=== PATIENT | male | born 1965 ===

== ENCOUNTER 2018-02-07 08:51 | Inpatient (IN) | payer OTHER ==
[2018-02-07] VITALS (9 sets, daily range): BP systolic 115–148; BP diastolic 53–90
[~2018-02-07] VITALS: Ht 168.9 cm; Wt 67.0 kg
[~2018-02-07 08:51] MED LIST: ACET1TAB25 PO; DOCU100C41 PO; HYDR12.5 PO; LISI40TA4 PO; VANCOMYCIN INJ 1000 MG in NORMAL SALINE 250ml IV.SOLN IV ONE; acetaminophen 325mg tablet PO ONE; cefazolin/dext.iso 2gm/100 ML IV ONE; famotidine 20mg tablet PO ONE; gabapentin 300mg capsule PO ONE; metoclopramide 5 mg/ml inj IV ONE; oxyCODONE SR 10mg (sust. release) tab -2 tabs (20mg) PO ONE; ringers solution, lacted 1,000 ML IV SCH; tranexamic acid inj. 1,000 MG in normal saline 100ml IV soln 90 ML IV ONE
[2018-02-07] MEDS ORDERED: vancomycin 1,000mg inj ONE (11:19)
[2018-02-07] MEDS ORDERED: ceFAZolin 1000mg inj ONE (11:20)
[2018-02-07] MEDS ORDERED: ROPIVAcaine inj 200 MG, ketorolac trometh inj. 30 MG, epiNEPHrine inj 0.6 MG, morphine ... IU ONE ×5 (12:30)
[2018-02-07] MEDS ORDERED: tetracaine 1% (10mg/ml) pres. free inj. ONE (12:57)
[2018-02-07] MEDS ORDERED: fentaNYL/PF 50MCG/1 ML 2ML syringe ONE (13:10)
[2018-02-07] MEDS ORDERED: MIDAZolam 5mg/5ml vial ONE (13:10)
[2018-02-07] MEDS ORDERED: BUPIVAcaine/dex-water/PF 7.5 mg/ml 2ml ampul ONE (13:15)
[2018-02-07] MEDS ORDERED: ePHEDrine 50MG/ML INJ. ONE (13:54)
[2018-02-07] MEDS ORDERED: propofol inj 20 ML IV ONE (13:54)
[2018-02-07] MEDS ORDERED: morphine 4 MG/ML inj SYRINge IV PRN ×2 (14:30)
[2018-02-07] MEDS ORDERED: ondansetron/PF 4mg/2ml inj IV PRN ×2 (14:30→16:20)
[2018-02-07] MEDS ORDERED: meperidine/PF 25mg/ml syringe IV PRN ×3 (14:30)
[2018-02-07] MEDS ORDERED: ringers solution, lacted 1,000 ML IV SCH (14:30)
[2018-02-07] MEDS ORDERED: proCHLORperazine 10 MG/2 ml inj IV PRN (14:30)
[2018-02-07] MEDS ORDERED: Thrombin (Bovine) 5,000 unit vial TP ONE (14:54)
[2018-02-07] MEDS ORDERED: calcium chloride 100 MG/1 ML inj IV ONE (14:55)
[2018-02-07] MEDS ORDERED: acetaminophen 325mg tablet PO PRN (16:20)
[2018-02-07] MEDS ORDERED: diphenhydrAMINE 25mg capsule PO PRN ×2 (16:20)
[2018-02-07] MEDS ORDERED: HYDROmorphone 1 mg/ml syringe IV PRN ×2 (16:20)
[2018-02-07] MEDS ORDERED: bisacodyl 10mg suppository rectal RC PRN (16:20)
[2018-02-07] MEDS ORDERED: oxyCODONE IR 5mg (immed. release) tablet PO PRN (16:20)
[2018-02-07] MEDS ORDERED: magnesium hydroxide 30ml (MOM) UD suspension PO PRN (16:20)
[2018-02-07] MEDS ORDERED: docusate sod 100mg capsule PO PRN (17:15)
[2018-02-07] MEDS ORDERED: acetaminophen w/codeine (30MG) #3 tablet PO PRN (17:15)
[2018-02-07] MEDS: potassium cl 20mEq in 1/2 NS 1,000 ML IV SCH (19:20)
[2018-02-07] MEDS ORDERED: TRANEXAMIC ACID IV ONE (19:30)
[2018-02-07] MEDS ORDERED: NORMAL SALINE IV ONE (19:30)
[2018-02-07] MEDS ORDERED: vancomycin/NS 1 GM ADD-VANTAGE 250 ML IV SCH (20:00)
[2018-02-07] MEDS: acetaminophen 325mg tablet PO SCH (20:17)
[2018-02-07] MEDS: sennosides 8.6mg tablet PO SCH (20:17)
[2018-02-07] MEDS: gabapentin 300mg capsule PO SCH (20:17)
[2018-02-07] MEDS: oxyCODONE IR 5mg (immed. release) tablet PO PRN (21:32)
[2018-02-07] MEDS: ceFAZolin 1GM/D5W- ADD-VANTAGE 50 ML IV SCH (23:35)
[2018-02-08] VITALS (7 sets, daily range): BP systolic 116–146; BP diastolic 62–89
[2018-02-08] MEDS: oxyCODONE IR 5mg (immed. release) tablet PO PRN ×5 (01:32→20:05)
[2018-02-08] MEDS: acetaminophen 325mg tablet PO SCH ×4 (01:33→20:04)
[2018-02-08] MEDS: potassium cl 20mEq in 1/2 NS 1,000 ML IV SCH ×3 (01:33→14:07)
[2018-02-08 05:09] LABS: BASOPHILS % (AUTO) 0.6 % (0-1); EOSINOPHILS # (AUTO) 0.1 X10'3 (0-0.9); EOSINOPHILS % (AUTO) 0.8 % (0-6); HEMATOCRIT 37.3 % (42.0-52.0); HEMOGLOBIN 12.6 g/dl (14.0-17.9); LYMPHOCYTES # (AUTO) 0.7 X10'3 (1.1-4.8); LYMPHOCYTES % (AUTO) 9.5 % (21-51); MEAN CORPUSCULAR HEMOGLOBIN 32.2 PG (27.0-31.0); MEAN CORPUSCULAR HGB CONC 33.7 % (33.0-36.5); MEAN CORPUSCULAR VOLUME 95.6 FL (78-98); MEAN PLATELET VOLUME 7.8 FL (7.4-10.4); MONOCYTES # (AUTO) 0.7 X10'3 (0-0.9); MONOCYTES % (AUTO) 9.3 % (2-12); NEUTROPHILS # (AUTO) 5.8 X10'3 (1.8-7.7); NEUTROPHILS % (AUTO) 79.8 % (42-75); PLATELET COUNT 199 X10'3 (140-440); RED CELL DISTRIBUTION WIDTH 13.7 % (11.5-14.5); WHITE BLOOD COUNT 7.2 X10'3 (4.5-11.0)
[2018-02-08 05:23] LABS: ANION GAP 5 (8-16); CHLORIDE 104 MMOL/L (99-107); POTASSIUM 4.1 MMOL/L (3.5-5.1); SODIUM 138 MMOL/L (135-145); TOTAL CARBON DIOXIDE 28.9 MMOL/L (24-32)
[2018-02-08] MEDS: celeCOXIB 100mg capsule PO SCH ×2 (09:03→20:04)
[2018-02-08] MEDS: ceFAZolin 1GM/D5W- ADD-VANTAGE 50 ML IV SCH (09:03)
[2018-02-08] MEDS: gabapentin 300mg capsule PO SCH ×3 (09:04→20:04)
[2018-02-08] MEDS: lisinopril 20mg tablet PO SCH (09:04)
[2018-02-08] MEDS: enoxaparin 40mg/0.4ml syringe SQ SCH (09:04)
[2018-02-08] MEDS ORDERED: celeCOXIB 100mg capsule PO SCH (20:00)
[2018-02-08] MEDS: sennosides 8.6mg tablet PO SCH (20:04)
[2018-02-09] MEDS: potassium cl 20mEq in 1/2 NS 1,000 ML IV SCH (00:19)
[2018-02-09] MEDS: oxyCODONE IR 5mg (immed. release) tablet PO PRN ×6 (00:19→21:09)
[2018-02-09] MEDS: acetaminophen 325mg tablet PO SCH ×3 (02:00→13:34)
[2018-02-09 06:00] VITALS: BP 111/75
[2018-02-09 06:06] LABS: BASOPHILS % (AUTO) 0.4 % (0-1); EOSINOPHILS # (AUTO) 0.1 X10'3 (0-0.9); EOSINOPHILS % (AUTO) 1.1 % (0-6); HEMATOCRIT 37.7 % (42.0-52.0); HEMOGLOBIN 12.8 g/dl (14.0-17.9); LYMPHOCYTES # (AUTO) 1.2 X10'3 (1.1-4.8); LYMPHOCYTES % (AUTO) 12.1 % (21-51); MEAN CORPUSCULAR HEMOGLOBIN 32.5 PG (27.0-31.0); MEAN CORPUSCULAR VOLUME 95.6 FL (78-98); MEAN PLATELET VOLUME 8.9 FL (7.4-10.4); MONOCYTES # (AUTO) 1.1 X10'3 (0-0.9); MONOCYTES % (AUTO) 11.3 % (2-12); NEUTROPHILS # (AUTO) 7.3 X10'3 (1.8-7.7); NEUTROPHILS % (AUTO) 75.1 % (42-75); PLATELET COUNT 176 X10'3 (140-440); RED BLOOD COUNT 3.94 X10'6 (4.70-6.10); RED CELL DISTRIBUTION WIDTH 13.9 % (11.5-14.5); WHITE BLOOD COUNT 9.7 X10'3 (4.5-11.0)
[2018-02-09] MEDS: celeCOXIB 100mg capsule PO SCH ×2 (08:51→20:42)
[2018-02-09] MEDS: enoxaparin 40mg/0.4ml syringe SQ SCH (08:52)
[2018-02-09] MEDS: lisinopril 20mg tablet PO SCH (08:52)
[2018-02-09] MEDS ORDERED: LIDOcaine 2% 10ml TOPICAL JELLY (Urojet) MM ONE (09:35)
[2018-02-09] MEDS: gabapentin 300mg capsule PO SCH ×3 (09:54→20:42)
[2018-02-09 10:00] VITALS: BP 130/78
[2018-02-09] MEDS ORDERED: acetaminophen 325mg tablet PO PRN (16:20)
[2018-02-09 18:00] VITALS: BP 108/64
[2018-02-09] MEDS: sennosides 8.6mg tablet PO SCH (20:45)
== END 2018-02-09 21:30 | DRG 470 ==
LOC: PAS IN 08:51 → EDSTATUS 15:30 → EEVIPCON 16:30 → ORTHO 4S 17:30
PROVIDERS: ADMIT Orthopaedic Surgery; ATTEND Orthopaedic Surgery
PROC: 02HV33Z Insertion of Infusion Device into Superior Vena Cava, Percutaneous Approach (ICD-10-PCS; 2018-02-07)
PROC: B548ZZA Ultrasonography of Superior Vena Cava, Guidance (ICD-10-PCS; 2018-02-07)
PROC: 0SRB0JZ Replacement of Left Hip Joint with Synthetic Substitute, Open Approach (ICD-10-PCS; principal; 2018-02-07 13:09)
DX: M16.12 Unilateral primary osteoarthritis, left hip (principal); D62 Acute posthemorrhagic anemia; I10 Essential (primary) hypertension; R33.9 Retention of urine, unspecified; Z79.899 Other long term (current) drug therapy
CPT/HCPCS: 36415; 71045; 72170; 73502; 73552; 80051; 85025; 86885; 86900; 86901; 97110; 97116; 97162; 97530; A6449; A7000; C1758; C1776; G0378; J0171; J0690; J1170; J1650; J1885; J2250; J2270; J2704; J2765; J2795; J3010; J3370; J3490; J7030; J7120; Q0163